=== PATIENT | male | born 1965 | race Asian ===

== ENCOUNTER 2024-01-11 16:19 | Emergency (ER) | payer MEDICAID ==
[~2024-01-11] VITALS: Ht 170.2 cm; Wt 88.0 kg
[2024-01-11 16:28] VITALS: O2SAT 98
[2024-01-11] MEDS: KETOROLAC 15MG/ML VIAL IM ONE (17:00)
[2024-01-11] MEDS ORDERED: COLC0.6C3 MT (17:16)
[2024-01-11] MEDS ORDERED: NAPR-1176 MT (17:16)
[2024-01-11 18:36] VITALS: BP 134/66; PULSE 76; RESP 18; TEMP 98
== END 2024-01-11 18:34 | disposition home or self-care (01) ==
LOC: ER 16:19
DX: M10.9 Gout, unspecified (principal)
CPT/HCPCS: 99283; 73630; 96372; J1885